=== PATIENT | male | born 1960 ===

== ENCOUNTER 2016-11-02 11:22 | Day surgery (SDC) | payer MEDICARE ==
[2016-11-01 14:44] VITALS: BMI 24.3
[2016-11-02] MEDS ORDERED: Propofol 10 mg/ml Inj (20 ML) ONE (15:53)
[2016-11-02] MEDS ORDERED: Sodium Chloride 0.9% 1,000 ML IV SCH (16:45)
[2016-11-02 17:16] VITALS: BP 134/86; PULSE 54; RESP 18; TEMP 97.7; O2SAT 99
== END 2016-11-02 18:00 | disposition home or self-care (01) ==
LOC: ENDO 11:22
PROVIDERS: ATTEND Internal Medicine
DX: K29.80 Duodenitis without bleeding (principal); K29.70 Gastritis, unspecified, without bleeding; K31.7 Polyp of stomach and duodenum
CPT/HCPCS: 43239; 43259; 88305; 88342; J2001; J2704; J3010; J7040 ×2